=== PATIENT | male | born 1950 | race Caucasian/White ===

== ENCOUNTER → 2017-09-30 | Outpatient (CLI) | payer OTHER ==
[~2017-09-30] MED LIST: ALLO100 PO; ALLO300 PO; CIPR500 PO; COLCRYS0.6 MG PO; COLPRO PO; EXFORGE PO; Exforge 10-3201 EACH PO; HYDRA25 PO; PHENA200 PO
[2017-09-30 10:48] LABS: BASOPHILS ABSOLUTE AUTO 0.04 K/mm3 (0.00-0.23); BASOPHILS PERCENT AUTO 1 % (0-2); EOSINOPHILS ABSOLUTE AUTO 0.16 K/mm3 (0.00-0.68); EOSINOPHILS PERCENT AUTO 2 % (0-6); Hematocrit 47.2 % (37.0-53.0); Hemoglobin 15.6 g/dL (13.5-17.5); IMMATURE GRAN ABSOLUTE AUTO 0.02 K/mm3 (0.00-0.10); IMMATURE GRAN PERCENT AUTO 0 % (0-1); LYMPHOCYTES ABSOLUTE AUTO 1.49 K/mm3 (0.84-5.20); LYMPHOCYTES PERCENT AUTO 19 % (21-46); MONOCYTES ABSOLUTE AUTO 0.79 K/mm3 (0.16-1.47); MONOCYTES PERCENT AUTO 10 % (4-13); Mean Corpuscular HGB 29.3 pg (26.0-34.0); Mean Corpuscular HGB Conc 33.1 g/dL (31.5-36.5); Mean Corpuscular Volume 89 fL (80-100); Mean Platelet Volume 11.3 fL (9.1-12.4); NEUTROPHILS PERCENT AUTO 69 % (41-73); Platelet Count 267 K/mm3 (150-400); RDW Coefficient Variation 13.2 % (11.7-14.2); RDW Standard Deviation 42.8 fL (35.1-46.3); Red Blood Cell Count 5.32 M/mm3 (4.30-5.90)
[2017-09-30 11:07] LABS: Albumin, Blood 3.8 g/dL (3.4-5.0); Albumin/Globulin Ratio 0.9 (0.8-1.8); Bilirubin, Total 1.8 mg/dL (0.1-1.0); Bun/Creatinine Ratio 15.9 (12.0-20.0); Calcium, Blood 9.2 mg/dL (8.5-10.1); Creatinine, Blood 1.32 mg/dL (0.60-1.20); Globulin, Blood 4.2 g/dL (2.2-4.0); Potassium, Blood 3.9 mmol/L (3.5-5.5)
[2017-09-30 11:14] LABS: Uric Acid, Blood 4.4 mg/dL (3.5-7.2)
== END | disposition home or self-care (01) ==
LOC: LAB 10:41
DX: R22.41 Localized swelling, mass and lump, right lower limb (principal)
CPT/HCPCS: 80053; 84550; 85025

== ENCOUNTER → 2018-04-05 | Outpatient (CLI) | payer OTHER | END | disposition home or self-care (01) | LOC: PLD 10:54 → LAB SHORT 10:54 | DX: D22.5 Melanocytic nevi of trunk (principal); D22.72 Melanocytic nevi of left lower limb, including hip | CPT/HCPCS: 88305 ==

== ENCOUNTER 2018-09-21 11:47 | Day surgery (SDC) | payer OTHER ==
[~2018-09-21] VITALS: Ht 170.2 cm; Wt 112.5 kg
[~2018-09-21 11:47] MED LIST changes: +LOSA25
[2018-09-21] MEDS ORDERED: AMLO10 PO (12:26)
[2018-09-21] MEDS ORDERED: CHLO25B PO (12:27)
== END 2018-09-21 14:10 | disposition home or self-care (01) ==
LOC: ORSCSDS 11:47
PROVIDERS: Internal Medicine Gastroenterology
PROC: 0DJD8ZZ Inspection of Lower Intestinal Tract, Via Natural or Artificial Opening Endoscopic (ICD-10-PCS; principal; 2018-09-21 13:00)
DX: Z12.11 Encounter for screening for malignant neoplasm of colon (principal); K64.8 Other hemorrhoids; I10 Essential (primary) hypertension; G47.30 Sleep apnea, unspecified; E78.5 Hyperlipidemia, unspecified; B19.10 Unspecified viral hepatitis B without hepatic coma; E11.9 Type 2 diabetes mellitus without complications; R16.1 Splenomegaly, not elsewhere classified; E66.01 Morbid (severe) obesity due to excess calories; Z68.39 Body mass index [BMI] 39.0-39.9, adult; Z79.899 Other long term (current) drug therapy
CPT/HCPCS: 82947; J7120

== ENCOUNTER → 2020-08-12 | Outpatient (CLI) | payer OTHER ==
[~2020-08-12] MED LIST changes: +AMLO10 PO; +CHLO25B PO
== END | disposition home or self-care (01) ==
LOC: LAB EV 12:42 → LAB SHORT 12:42
DX: M79.672 Pain in left foot (principal)
CPT/HCPCS: 84550

== ENCOUNTER → 2020-09-12 | Outpatient (CLI) | payer OTHER ==
[2020-09-12 14:36] LABS: BASOPHILS ABSOLUTE AUTO 0.02 K/mm3 (0.00-0.23); BASOPHILS PERCENT AUTO 0 % (0-2); EOSINOPHILS PERCENT AUTO 1 % (0-6); Hematocrit 44.9 % (37.0-53.0); Hemoglobin 14.7 g/dL (13.5-17.5); IMMATURE GRAN ABSOLUTE AUTO 0.03 K/mm3 (0.00-0.10); IMMATURE GRAN PERCENT AUTO 0 % (0-1); LYMPHOCYTES ABSOLUTE AUTO 1.24 K/mm3 (0.84-5.20); LYMPHOCYTES PERCENT AUTO 13 % (21-46); MONOCYTES ABSOLUTE AUTO 2.03 K/mm3 (0.16-1.47); MONOCYTES PERCENT AUTO 21 % (4-13); Mean Corpuscular HGB 29.2 pg (26.0-34.0); Mean Corpuscular HGB Conc 32.7 g/dL (31.5-36.5); Mean Corpuscular Volume 89 fL (80-100); Mean Platelet Volume 10.2 fL (9.1-12.4); NEUTROPHILS ABSOLUTE AUTO 6.08 K/mm3 (1.96-9.15); NEUTROPHILS PERCENT AUTO 64 % (41-73); Platelet Count 219 K/mm3 (150-400); RDW Coefficient Variation 15.1 % (11.7-14.2); RDW Standard Deviation 49.4 fL (35.1-46.3); Red Blood Cell Count 5.03 M/mm3 (4.30-5.90)
[2020-09-12 14:45] LABS: Albumin, Blood 3.2 g/dL (3.4-5.0); Albumin/Globulin Ratio 0.9 (0.8-1.8); Bilirubin, Total 2.2 mg/dL (0.1-1.0); Bun/Creatinine Ratio 12.7 (12.0-20.0); Creatinine, Blood 1.34 mg/dL (0.60-1.20); Globulin, Blood 3.5 g/dL (2.2-4.0); Potassium, Blood 3.9 mmol/L (3.5-5.5); Total Protein, Blood 6.7 g/dL (6.4-8.2); Uric Acid, Blood 9.1 mg/dL (3.5-7.2)
[2020-09-12 15:12] LABS: Bilirubin, Direct 0.3 mg/dL (0.0-0.3); Bilirubin, Indirect 1.9 mg/dL (0.1-0.7); Bilirubin, Total 2.2 mg/dL (0.1-1.0)
== END | disposition home or self-care (01) ==
LOC: LAB 14:31 → LAB SHORT 14:31
PROVIDERS: Physician Assistant
DX: M10.9 Gout, unspecified (principal); R19.7 Diarrhea, unspecified; R17 Unspecified jaundice
CPT/HCPCS: 80053; 82247; 82248; 84550; 85025

== ENCOUNTER 2021-03-05 02:09 | Day surgery (SDC) | payer OTHER ==
[2021-03-05] MEDS ORDERED: ABILIFY MYCITE2 M2 (09:28)
[2021-03-05] MEDS ORDERED: POTA8 PO (09:51)
[2021-03-05] MEDS ORDERED: FURO20 PO (09:52)
[2021-03-05] MEDS ORDERED: METO50ER PO (09:52)
[2021-03-05] MEDS ORDERED: ELIQUIS2.5 MG PO (09:52)
== END 2021-03-05 09:56 | disposition home or self-care (01) ==
LOC: ATC 02:09
DX: E27.0 Other adrenocortical overactivity (principal); I12.9 Hypertensive chronic kidney disease with stage 1 through stage 4 chronic kidney disease, or unspecified chronic kidney disease; N18.2 Chronic kidney disease, stage 2 (mild); E78.00 Pure hypercholesterolemia, unspecified; M10.9 Gout, unspecified
CPT/HCPCS: 80400; 82533; 96372; J0834

== ENCOUNTER 2021-03-12 00:19 | Day surgery (SDC) | payer OTHER ==
[~2021-03-12 00:19] MED LIST changes: +ABILIFY MYCITE2 M2; +ELIQUIS2.5 MG PO; +FURO20 PO; +METO50ER PO; +POTA8 PO
== END 2021-03-12 11:02 | disposition home or self-care (01) ==
LOC: ATC 00:19
DX: E27.0 Other adrenocortical overactivity (principal); I12.9 Hypertensive chronic kidney disease with stage 1 through stage 4 chronic kidney disease, or unspecified chronic kidney disease; N18.2 Chronic kidney disease, stage 2 (mild); M10.9 Gout, unspecified
CPT/HCPCS: 36415; 80400; 82533; 96372; J0834

== ENCOUNTER → 2021-04-09 | Outpatient (CLI) | payer OTHER | LOC: LAB SHORT 14:22 → LAB 14:22 | DX: D48.5 Neoplasm of uncertain behavior of skin (principal) | CPT/HCPCS: 88305 ==

== ENCOUNTER 2022-06-29 01:52 | Emergency (ER) | payer OTHER ==
[~2022-06-29] VITALS: Ht 170.2 cm; Wt 111.1 kg
[2022-06-29] MEDS ORDERED: Roxicodone5 MG PO (04:27)
== END 2022-06-29 05:39 | disposition home or self-care (01) ==
LOC: ER 01:52
DX: S02.85XA Fracture of orbit, unspecified, initial encounter for closed fracture (principal); S02.2XXA Fracture of nasal bones, initial encounter for closed fracture; S02.0XXA Fracture of vault of skull, initial encounter for closed fracture; W17.89XA Other fall from one level to another, initial encounter; I10 Essential (primary) hypertension; Z91.018 Allergy to other foods; Z79.899 Other long term (current) drug therapy; Z79.01 Long term (current) use of anticoagulants
CPT/HCPCS: 70450; 70486; 73110; A9270

== ENCOUNTER → 2024-01-25 | Outpatient (CLI) | payer OTHER ==
[~2024-01-25] MED LIST changes: +Roxicodone5 MG PO
[2024-01-25 16:43] LABS: Protein, Urine Quantitative 36.3 mg/dL (0.0-11.9)
== END ==
LOC: LAB SHORT 12:30 → LAB 12:30
PROVIDERS: Internal Medicine Nephrology
DX: N18.30 Chronic kidney disease, stage 3 unspecified (principal); D63.1 Anemia in chronic kidney disease; N25.81 Secondary hyperparathyroidism of renal origin; E55.9 Vitamin D deficiency, unspecified; E78.00 Pure hypercholesterolemia, unspecified; R76.9 Abnormal immunological finding in serum, unspecified; R94.5 Abnormal results of liver function studies; R94.6 Abnormal results of thyroid function studies
CPT/HCPCS: 81050; 82043; 82570; 84156